=== PATIENT | male | born 1950 | race Caucasian/White ===

== ENCOUNTER 2017-04-13 06:40 | Day surgery (SDC) | payer MEDICARE, OTHER ==
[~2017-04-13] VITALS: Ht 180.3 cm; Wt 82.0 kg
[~2017-04-13 06:40] MED LIST: ATOR10; ESCI10; Omeprazole20 M1
[2017-04-13] MEDS ORDERED: CYAN500 (06:54)
== END 2017-04-13 08:46 | disposition home or self-care (01) ==
LOC: ORSCSDS 06:40
PROVIDERS: Internal Medicine Gastroenterology
PROC: 0DB68ZX Excision of Stomach, Via Natural or Artificial Opening Endoscopic, Diagnostic (ICD-10-PCS; principal; 2017-04-13 08:00)
PROC: 0D758ZZ Dilation of Esophagus, Via Natural or Artificial Opening Endoscopic (ICD-10-PCS; principal; 2017-04-13 08:00)
DX: K21.9 Gastro-esophageal reflux disease without esophagitis (principal); K29.00 Acute gastritis without bleeding; R13.10 Dysphagia, unspecified; E78.5 Hyperlipidemia, unspecified; F32.9 Major depressive disorder, single episode, unspecified; B19.20 Unspecified viral hepatitis C without hepatic coma; Z79.899 Other long term (current) drug therapy; Z87.891 Personal history of nicotine dependence
CPT/HCPCS: 88305; 88342; J0330; J1980; J2405; J7120; Q9968

== ENCOUNTER 2017-07-05 09:14 | Day surgery (SDC) | payer MEDICARE, OTHER ==
[~2017-07-05] VITALS: Ht 180.3 cm; Wt 78.9 kg
[~2017-07-05 09:14] MED LIST changes: +CYAN500
== END 2017-07-05 11:50 | disposition home or self-care (01) ==
LOC: ORSCSDS 09:14
PROVIDERS: Internal Medicine Gastroenterology
PROC: 0DB68ZX Excision of Stomach, Via Natural or Artificial Opening Endoscopic, Diagnostic (ICD-10-PCS; principal; 2017-07-05 10:30)
PROC: 0DBM8ZX Excision of Descending Colon, Via Natural or Artificial Opening Endoscopic, Diagnostic (ICD-10-PCS; principal; 2017-07-05 10:30)
PROC: 0DB98ZX Excision of Duodenum, Via Natural or Artificial Opening Endoscopic, Diagnostic (ICD-10-PCS; principal; 2017-07-05 10:30)
PROC: 0D757ZZ Dilation of Esophagus, Via Natural or Artificial Opening (ICD-10-PCS; principal; 2017-07-05 10:30)
DX: K25.9 Gastric ulcer, unspecified as acute or chronic, without hemorrhage or perforation (principal); R13.14 Dysphagia, pharyngoesophageal phase; Z86.010 Personal history of colon polyps; D12.4 Benign neoplasm of descending colon; K57.30 Diverticulosis of large intestine without perforation or abscess without bleeding; K64.8 Other hemorrhoids; B19.20 Unspecified viral hepatitis C without hepatic coma; Z87.891 Personal history of nicotine dependence; Z79.899 Other long term (current) drug therapy
CPT/HCPCS: 88305; 88342; J7120

== ENCOUNTER 2018-07-17 11:17 | Day surgery (SDC) | payer MEDICARE, OTHER ==
[~2018-07-17] VITALS: Ht 180.3 cm; Wt 79.7 kg
[2018-07-17] MEDS ORDERED: TRAZ100 PO (12:20)
[2018-07-17] MEDS ORDERED: Prilosec Otc20 MG PO (12:20)
[2018-07-17] MEDS ORDERED: VITAMIN D33000 UNIT PO (12:21)
--- NOTE | 2018-07-17 12:27 | NUR ---
07/17/18 1227 Chandni Samson [place] , 18G, STARTED BY JOHN JENSEN
== END 2018-07-17 14:38 | disposition home or self-care (01) ==
LOC: ORSCSDS 11:17
PROVIDERS: Orthopaedic Surgery
PROC: 01N50ZZ Release Median Nerve, Open Approach (ICD-10-PCS; principal; 2018-07-17 13:30)
DX: G56.02 Carpal tunnel syndrome, left upper limb (principal); B19.20 Unspecified viral hepatitis C without hepatic coma; Z79.899 Other long term (current) drug therapy
CPT/HCPCS: J0690; J2250; J7120